=== PATIENT | male | born 2000 | race Caucasian/White ===

== ENCOUNTER 2024-05-03 15:57 | Outpatient (AMB) | payer BC, SELFPAY ==
--- NOTE | 2024-05-03 16:00 | AM.OFFWIN_ITS ---
Intake Vital Signs 05/03/24 16:04 Height 5 ft 10 in Weight 183 lb BMI 26.3 BP 122/74 Blood Pressure Location Lt brachial Position Sitting Pulse 73 Pulse Source Pulse Oximeter Temp 97.8 F Temp Source Temporal Artery Scan Pulse Oximetry (%) 98 Intake Visit Reasons: Right pinkie Toe infected Intake Note: pt is here for right pinky toe infection Patient Tobacco Use Status: Never used Tobacco Allergies No Known Allergies Allergy (Verified 05/03/24 16:00) Do you need a note to return to daycare/school/sports/work: Yes HPI HPI Comments History of Present Illness Details 23 y/o male patient who presents to walk in clinic with c/o right 5th toe injury x 3 days ago. He injured his toe against the door. FOR[facility], [facility] Social History Patient Tobacco Use Status: Never used Tobacco Review of Systems Const All systems reviewed & are unremarkable except as noted in HPI and below Physical Exam Vital Signs: Last Vital Signs Temp 97.8 F 05/03/24 16:04 Pulse 73 05/03/24 16:04 BP 122/74 05/03/24 16:04 Pulse Ox 98 05/03/24 16:04 BMI result Body Mass Index 26.3 Const General: comfortable and no acute distress Orientation/consciousness: patient oriented x3 Neuro General: patient oriented x3, gait normal and moves all extremities Extrem Right lower extremity: foot Details: normal capillary refill, tenderness, toes with normal ROM and edema Location: of the dorsal foot and of another digit Location: the 5th digit and at the proximal phalanx Psych Speech and movement: Normal speech and movement present Assessment & Plan Assessment & Plan (1) Crushing injury of fifth toe, right: Code(s): S97.121A - Crushing injury of right lesser toe(s), initial encounter Qualifiers: Encounter type: initial encounter Qualified Code(s): S97.121A - Crushing injury of right lesser toe(s), initial encounter Plan: Ordered Xray Ice/Hot Ibuprofen for pain relief Orders: Orders XR foot RT 2V Today S97.121A - Crushing injury of right lesser toe(s), initial encounter Coding Level of Care Code Est Pt Level 4 (96395) Diagnoses Crushing injury of fifth toe of right foot, initial encounter S97.121A Encounter type: initial encounter Time Spent (min) 20
[2024-05-03 16:04] VITALS: BP 122/74; PULSE 73; TEMP 36.6; O2SAT 98; BMI 26.3
== END 2024-05-03 18:10 | disposition home or self-care (01) ==
PROVIDERS: PCP Pediatrics; Visit Provider Nurse Practitioner Family
DX: S97.121A Crushing injury of right lesser toe(s), initial encounter (principal)
CPT/HCPCS: 99214

== ENCOUNTER 2024-05-03 16:10 | Outpatient (REF) | payer BC, SELFPAY ==
--- NOTE | ~2024-05-03 | XR_ITS ---
EXAMINATION: XR FOOT, RIGHT CLINICAL INFORMATION: Crushing injury. Pain COMPARISON: None available. TECHNIQUE: AP, lateral, and oblique views of the right foot. FINDINGS: There is a very slender osseous density, seen related to the distal aspect of the proximal phalanx of the fifth toe. This could reflect a subtle avulsion. Chronicity of this finding is uncertain. No other questionable fractures are seen. Remainder the foot is intact. XR/XR foot RT 2V IMPRESSION: Query subtle avulsion injury as described.
== END 2024-05-03 16:11 | disposition home or self-care (01) ==
LOC: HO.HMGCX 16:10
PROVIDERS: PCP Pediatrics; Visit Provider Nurse Practitioner Family
DX: S97.121A Crushing injury of right lesser toe(s), initial encounter (principal)
CPT/HCPCS: 73620

== ENCOUNTER 2025-02-06 14:24 | Emergency (ER) | payer BC, SELFPAY ==
--- NOTE | ~2025-02-06 | XR_ITS ---
EXAMINATION: XR CHEST CLINICAL INFORMATION: coughing. pneumonia? COMPARISON: None available. TECHNIQUE: Frontal view of the chest was obtained. FINDINGS: No consolidation, pleural fissure pneumothorax. Mild prominence of the interstitial markings. Cardiomediastinal silhouette size is normal. Osseous structures are grossly intact. Mild S-shaped curvature of the thoracic spine. XR/XR chest 1V IMPRESSION: Acute small airway inflammatory process should be considered in the correct clinical settings. Electronically signed by: King Nicholas MD 02/06/2025 03:49 PM EDT
[2025-02-06 14:51] VITALS: BP 153/92; PULSE 100; RESP 18; TEMP 37.1; O2SAT 96
--- NOTE | 2025-02-06 15:10 | ED_ITS ---
HPI - General Adult General Chief complaint: Upper Respiratory Symptoms Stated complaint: Congestion, sore throat Time Seen by Provider: 02/06/25 14:56 Source: patient Mode of arrival: ambulatory Limitations: no limitations History of Present Illness ED Provider: Tahir Childs HPI narrative: 24 yold male with no pmh presents to the ED for URI symptoms. Patient states nasal congestion, coughing, bodyaches, fever, and chills. patient states no chest pain or shortness of breath. Related Data Previous Rx's ?Medication ?Instructions ?Recorded albuterol sulfate 90 mcg/actuation 2 puff inhalation Q4-6H PRN 02/06/25 aerosol inhaler shortness of breath or wheezing #8.5 grams azithromycin 250 mg tablet See Rx Instructions PO .COMPLEX #6 02/06/25 tabs benzonatate 200 mg capsule 200 mg PO TID PRN cough 5 days #15 02/06/25 caps Allergies Allergy/AdvReac Type Severity Reaction Status Date / Time No Known Allergies Allergy Verified 02/06/25 14:53 Review of Systems Review of Systems: coughing, nasal congestion, fever, chills, and bodyaches Yes all other systems are reviewed and are negative [facility] Social History Social History Patient Tobacco Use Status: Never used Tobacco Advance Directives: No Advance Directives Information Provided: No Physical Exam ED Vital Signs: Vital Signs - 24 hr 02/06/25 14:51 02/06/25 16:36 Temperature 98.7 F 98.7 F Pulse Rate 100 100 Respiratory Rate 18 18 Blood Pressure 153/92 H 153/92 H Pulse Oximetry 96 96 Oxygen Delivery Method Room Air Room Air BMI result Body Mass Index 30.0 Const General: cooperative, healthy appearing, comfortable, no acute distress, well developed, alert, awake and Physically active Orientation/consciousness: patient oriented x3 HENMT Head: Yes normal to inspection, Yes No palpable skull fracture present, Yes normocephalic and Yes atraumatic Ears: hearing grossly normal bilaterally, external ears normal, TM's normal bilaterally, TM normal on the right, TM normal on the left, EAC's normal and mas toids normal Throat: Yes posterior oropharynx normal, Yes tonsils normal and Yes uvula midline Eyes General: appearance normal, both eyes and all related structures Visual Erickson: normal visual erickson by confrontation Alignment and Position: alignment normal Periorbital: periorbital findings normal Eyelids: Yes eyelids normal Conjunctivae: conjunctivae normal Sclerae: sclerae normal Corneas: corneas normal Pupils: Equal, round and reactive pupils present EOM: EOMs intact bilaterally Direct Ophthalmoscopy: normal light reflex Neck Neck: Yes normal visual inspection, Yes full ROM, Yes no lymphadenopathy, Yes no meningeal signs, Yes trachea midline, Yes supple, No anterior neck swelling and No tender Chest Chest palpation & inspection: normal inspection of the chest and normal palp ation of entire chest wall Resp Effort & Inspection: normal respiratory effort and able to speak in complete sentences Auscultation: clear to auscultation bilaterally Cardio Jugular venous distension: no JVD Heart sounds: S1 normal heart sound present and S2 normal heart sound present GI Inspection: Yes normal to inspection Palpation (GI): Soft to palpation, not firm, nontender, no guarding and not rigid General: Yes no CVA tenderness Back/Spine/Pelvis Back: no CVA tenderness and No back tenderness Skin General skin exam: no rashes or lesions noted, elasticity normal and turgor normal Neuro General: patient oriented x3, gait normal, tone normal, moves all extremities, Normal light touch and pain sensation, no meningeal signs, no focal motor deficits and CN's II-XI intact bilaterally Cranial nerves: Yes Equal, round and reactive pupils present Extrem General: Yes normal to inspection, Yes full ROM and Yes capillary refill normal Psych Appearance: grossly normal, well kempt and not disheveled Course Course Course Narrative: RME: 24-year-old male presents to ED for nasal congestion, chest congestion, coughing, body aches, fever, and chills. Patient denied any distress. Lungs are clear. Negative for any lower extremity swelling pitting edema or calf pain. Patient denies any pleurisy. Chest x-ray SARs strep ordered. Medical Decision Making Medical Decision Making MDM Narrative: 24-year-old male presents to ED for URI symptoms. Patient states cough, chest congestion, nasal congestion, body aches, chills and fever for the past 2 days. Patient denies any shortness of breath, leg swelling, calf pain, chest pain, or pleurisy. Lungs are clear. Patient is sent for SARs strep chest x-ray. 4: 17pm: Abdominal patient's SARs strep came back negative. Chest x-ray shows possible small airway disease. We will treat as bronchitis. Patient be di scharged albuterol inhaler and antibiotics and cough medication. Patient explained worrisome signs and informed to return to the ED immediately. NOt suspecting hypoxia, CHF, pericarditits, myocarditits, OK, PE, or any other concerning symptoms. Differential Diagnosis Differential Diagnoses: The differential diagnosis associated with the presentation includes (Pneumonia, COVID, influenza, RSV strep bronchitis) Admission/Observation Consideration of admission/observation: Escalation of care including admission/observation considered Lab Data MDM Lab Attestation statement: I reviewed the patient's lab results. Labs: Lab Results 02/06/25 Range/Units 14:56 Influenza Type A (PCR) NEGATIVE (Negative) Influenza Type B (PCR) NEGATIVE (Negative) RSV RNA Qual (PCR) NEGATIVE (Negative) SARS-CoV-2 RNA (RT-PCR) NEGATIVE (Negative) S. pyogenes GrpA YANETH Negative (Negative) Independent Interpretation I performed an independent interpretation of an: Plain X-Ray Radiology Impression Discussion of test interpretation with radiology: I have reviewed the radiologist's reading. Independent Historian Clinical information obtained from an independent historian. History obtained from or confirmed by: Other (patient) Prescription Management I considered prescription management with: Antibiotic and Other (albuterol) Discharge Plan Discharge Clinical Impression: Bronchitis Patient Disposition: Home, Self-Care Instructions: Acute Bronchitis (ED) Additional Instructions: Return to the ED immediately for any coughing up blood, chest pain, shortness of breath, severe sore throat, leg swelling, calf pain, chest pain on inspiration, rash, intractable fever, weakness, dizziness, or any other concerning symptoms. Recommend follow up with PCP OMPARISON: None available. TECHNIQUE: Frontal view of the chest was obtained. FINDINGS: No consolidation, pleural fissure pneumothorax. Mild prominence of the interstitial markings. Cardiomediastinal silhouette size is normal. Osseous structures are grossly intact. Mild S-shaped curvature of the thoracic spine. XR/XR chest 1V IMPRESSION: Acute small airway inflammatory process should be considered in the correct clinical settings. Electronically signed by: King Nicholas MD 02/06/2025 03:49 PM EDT Prescriptions: New albuterol sulfate 90 mcg/actuation HFA aerosol inhaler 2 puff inhalation Q4-6H PRN (Reason: shortness of breath or wheezing) Qty: 8.5 0RF azithromycin 250 mg tablet See Rx Instructions .ROUTE .COMPLEX Qty: 6 0RF Rx Instructions: For 250 mg dose pack: take 500 mg today (day 1), then 250 mg for 4 days (days 2-5) benzonatate 200 mg capsule 200 mg PO TID PRN (Reason: cough) 5 Days Qty: 15 0RF Stand Alone Forms: Work/School Release Interventions: ED Discharge Assessment Last Done: 02/06/25 16:36 Discharge Date/Time: 02/06/25 16:37 Print Language: Greenlandic
[2025-02-06 15:22] LABS: IDNOW Serial# 55D5AD1C; Strep A Nucleic Acid Negative (Negative)
[2025-02-06 15:55] LABS: Influenza A PCR NEGATIVE (Negative); Influenza B PCR NEGATIVE (Negative); Resp Syncy Virus RNA Qual PCR NEGATIVE (Negative); SARS COV2 PCR INHOUSE NEGATIVE (Negative)
[2025-02-06 16:36] VITALS: BP 153/92; PULSE 100; RESP 18; TEMP 37.1; O2SAT 96
== END 2025-02-06 16:37 | disposition home or self-care (01) ==
LOC: HO.ED 16:34
PROVIDERS: Physician Assistant; Emergency Provider Emergency Medicine
DX: J40 Bronchitis, not specified as acute or chronic (principal); R50.9 Fever, unspecified
CPT/HCPCS: 0241U; 71045; 87651; 99282; 99283

== ENCOUNTER → 2025-02-06 15:05 | Outpatient (BNV) | payer BC, SELFPAY | PROVIDERS: Emergency Provider Emergency Medicine; Visit Provider Radiology Diagnostic Radiology | DX: R05.9 Cough, unspecified (principal) | CPT/HCPCS: 71045 ==

== ENCOUNTER 2025-06-03 19:49 | Emergency (ER) | payer BC, SELFPAY ==
--- NOTE | ~2025-06-03 | XR_ITS ---
CLINICAL HISTORY: pain, injury 3 view left ankle Comparison: None provided Findings: Bones intact. No dislocations. No significant loss of joint space, osteophytes, or erosions. No ankle effusion. No radiopaque foreign body. IMPRESSION: 1. No acute findings. This document has been electronically signed by: Radha Bhatia MD on 06/03/2025 20:44:20
--- NOTE | ~2025-06-03 | XR_ITS ---
CLINICAL HISTORY: pain, injury 3 view left foot Comparison: None provided Findings: Bones intact. No dislocations. Soft tissue laceration noted adjacent to the distal tibia. Small focus of erosion within the head of the 1st metatarsal. No significant joint space loss. No ankle effusion. No radiopaque foreign body. IMPRESSION: No evidence of fracture or foreign body. This document has been electronically signed by: Radha Bhatia MD on 06/03/2025 20:45:22
--- NOTE | 2025-06-03 19:57 | ED_ITS ---
HPI - General Adult General Chief complaint: Wound/Laceration Stated complaint: car fell on left foot, bleeding Time Seen by Provider: 06/04/25 01:01 Source: patient Mode of arrival: ambulatory Limitations: no limitations History of Present Illness ED Provider: Yogi GÓMEZ HPI narrative: Patient is a 24-year-old male presenting to the ED for evaluation of pain, swelling, and a laceration to his left ankle/foot after a car he was working on fell off a [place] and onto his foot. The patient was able to remove the foot as the vehicle was falling. Patient denies distal paresthesias or impaired range of motion. The patient does not know the date of his last tetanus shot. Patient denies previous injury to the affected extremity. Related Data Previous Rx's ?Medication ?Instructions ?Recorded albuterol sulfate 90 mcg/actuation 2 puff inhalation Q 4-6H PRN 02/06/25 aerosol inhaler shortness of breath or wheez ing #8.5 grams azithromycin 250 mg tablet See Rx Instructions PO .COM PLEX #6 02/06/25 tabs benzonatate 200 mg capsule 200 mg PO TID PRN cough 5 d ays #15 02/06/25 caps acetaminophen 500 mg capsule 1,000 mg (2 x 500 mg) PO .q8 PRN 06/04/25 fever or pain #30 caps ibuprofen 600 mg tablet 600 mg PO Q8H PRN fever or p ain 06/04/25 #30 tabs Allergies Allergy/AdvReac Type Severity Reaction Status Date / Time No Known Allergies Allergy Verified 06/03/25 20:00 Review of Systems Review of Systems: Yes all other systems are reviewed and are negative PMFSH Social History Social History Patient Tobacco Use Status: Never used Tobacco Smoked in Last 30 Days: Yes Use of substances other than those prescribed or required for medical reasons: Yes Substance Use Type: Marijuana Advance Directives: No Advance Directives Information Provided: No Do you have a plan to hurt others: No Plan Physical Exam ED Vital Signs: Vital Signs - 24 hr 06/03/25 19:59 06/03/25 23:42 Temperature 97.5 F 98.0 F Pulse Rate 110 H 97 Respiratory Rate 20 16 Blood Pressure 129/83 153/101 H Pulse Oximetry 97 97 Oxygen Delivery Method Room Air Room Air BMI result Body Mass Index 27.9 CONSTITUTIONAL: The patient appears non-toxic, well nourished and in no acute distress. Vital signs as documented. HEAD: Atraumatic, normocephalic. EYES: EOMs grossly intact, pupils equal, conjunctiva clear, no exudate. ENT: Nares patent, no discharge. Airway patent, no audible stridor, visible mucosa is pink and moist without noted lesions. NECK: trachea is midline, no obvious masses or gross abnormalities. CHEST: Symmetric movement, normal appearance. LUNGS: Non-labored work of breathing. CARDIAC: No evidence of hypoperfusion. ABDOMEN: Nondistended, no obvious injury. : Deferred. EXTREMITIES: There is contusion and swelling noted to the dorsum of the left foot with a 3 cm laceration noted to the dorsal surface of the left ankle, there was an additional abrasion noted to the middle 3rd of the left anterior tibia, no overlying bony tenderness. Patient is able to bear weight. Distal CSM is intact, 2+ DP/PT pulses. Compartments are soft. Patient endorses full but painful range of motion of the left digits. Moves all other extremities spontaneously without reported pain. No other obvious injury or deformity noted. NEURO: Alert and oriented x3, CN II-XII appear grossly intact. Cerebellar Functioning grossly intact. Speech clear and appropriate. SKIN: Warm, dry, color appropriate. No rashes or lesions noted. Course Course Course Narrative: Rapid medical examination performed in triage by Tory Saleh PA-C. Patient is a 24 year old assigned male at presenting to the emergency department with left ankle pain. Patient states he was working on a car that slipped off the stands and landed on his left ankle. Detailed physical exam and review of systems are deferred to the crisis clinician. Imaging ordered. Patient placed back in the waiting room pending room availability and results. Medications Administered Discontinued Medications Generic Name Dose Route Start Last Admin Trade Name Freq PRN Reason Stop Dose Admin Diphtheria/Tetanus/Acell Pertussis 0.5 ml 06/03/25 19:59 06/03/25 23:45 Diphth,Pertus(Acell),Tet Adult 0.5 Ml Syringe IM 06/03/25 20:00 0.5 ml .ONCE ONE Administration Procedures Laceration Laceration 1: Site: lower extremity Side (If applicable): left Size (cm): 3 Description: linear and clean Depth: simple, single layer Local Anesthetic: lidocaine 1% Amount of anesthesia used (mL): 5 Pre-repair: wound explored and irrigated extensively Skin layer closed with: nylon Size (cm): 4-0 Number of sutures: 5 Technique: simple, interrupted Medical Decision Making Medical Decision Making MDM Narrative: 2:08 AM 06/04/2025 (Lee GÓMEZ): Patient is a 24-year-old male presenting to the ED for evaluation of pain, swelling, contusion, and laceration of the left foot/ankle after a car he was replaced in the brakes on fell off the [place] onto his foot. The patient's x-ray showed no evidence of acute fracture, laceration was repaired. Patient will be treated with ibuprofen, Tylenol, and outpatient follow up with PCP for re-evaluation and suture removal. Radiology Impression Discussion of test interpretation with radiology: I have reviewed the radiologist's reading. Radiologist Impression: CLINICAL HISTORY: pain, injury 3 view left foot Comparison: None provided Findings: Bones intact. No dislocations. Soft tissue laceration noted adjacent to the distal tibia. Small focus of erosion within the head of the 1st metatarsal. No significant joint space loss. No ankle effusion. No radiopaque foreign body. IMPRESSION: No evidence of fracture or foreign body. This document has been electronically signed by: Radha Bhatia MD on 06/03/2025 20:45:22 CLINICAL HISTORY: pain, injury 3 view left ankle Comparison: None provided Findings: Bones intact. No dislocations. No significant loss of joint space, osteophytes, or erosions. No ankle effusion. No radiopaque foreign body. IMPRESSION: 1. No acute findings. This document has been electronically signed by: Radha Bhtaia MD on 06/03/2025 20:44:20 Tests considered The following testing was considered but not selected: CT Prescription Management I considered prescription management with: Pain Medication Discharge Plan Discharge Clinical Impression: Laceration of ankle without foreign body Qualifiers: Encounter type: initial encounter Laterality: left Qualified Code(s): S91.012A - Laceration without foreign body, left ankle, initial encounter Contusion of foot, left Qualifiers: Encounter type: initial encounter Qualified Code(s): S90.32XA - Contusion of left foot, initial encounter Patient Disposition: Home, Self-Care Instructions: Laceration (ED), Foot Contusion (ED) Additional Instructions: Thank you for choosing [facility]'s Emergency Department for your care today. Thankfully your x-rays today showed no evidence of any acute fracture of your ankle or foot as a result of your car falling off its [place]. Your laceration today appears noncomplicated. The laceration was repaired with nonabsorbable sutures which will need to be removed in 7-10 days. Please return to the emergency department or follow-up with your primary care provider for removal of sutures. Please apply bacitracin and a clean dry dressing to the laceration twice daily for the first 2-3 days. Then please keep the area clean and dry, but uncovered and exposed to the air to allow the laceration to heal. While it is perfectly acceptable to allow water to run over the sutures while showering, please do not swim, or submerge the laceration in standing water until the sutures are removed. You may take alternating (staggered) doses of ibuprofen 600mg and Tylenol 1000mg every 4 hours as needed for any additional pain. Please rest the injured area, and apply ice for 20 minutes every hour. If you do not have a primary care physician, please call the [facility] at [phone] to establish a new primary care physician. While waiting to establish your new primary care physician, you can call our Walk-in [facility] at [phone] for non-emergency needs. Please return to the emergency department if you develop any uncontrollable bleeding, re-opening of your wound, redness advancing >1-2 cm away from your wound, or white milky discharge from your wound. Please also return if you experience any other new or worsening symptoms or concerns. Prescriptions: New ibuprofen 600 mg tablet 600 mg PO Q8H PRN (Reason: fever or pain) Qty: 30 0RF acetaminophen 500 mg capsule 1,000 mg PO .q8 PRN (Reason: fever or pain) Qty: 30 0RF No Action albuterol sulfate 90 mcg/actuation HFA aerosol inhaler 2 puff inhalation Q4-6H PRN (Reason: shortness of breath or wheezing) Qty: 8.5 0RF azithromycin 250 mg tablet See Rx Instructions .ROUTE .COMPLEX Qty: 6 0RF Rx Instructions: For 250 mg dose pack: take 500 mg today (day 1), then 250 mg for 4 days (days 2-5) benzonatate 200 mg capsule 200 mg PO TID PRN (Reason: cough) 5 Days Qty: 15 0RF Referrals: Physician,None [Primary Care Provider, Medical] Clinical Impression: Laceration of ankle without foreign body Stand Alone Forms: Work/School Release Print Language: Ghanaian
[2025-06-03 19:59] VITALS: BP 129/83; PULSE 110; RESP 20; TEMP 36.4; O2SAT 97; BMI 27.9
[2025-06-03 23:42] VITALS: BP 153/101; PULSE 97; RESP 16; TEMP 36.7; O2SAT 97
[2025-06-03] MEDS: Diphth,Pertus(ACell),Tet Adult 0.5 ML SYRINGE IM (23:45)
[2025-06-04 02:00] VITALS: BP 150/82; PULSE 90; RESP 17; TEMP 36.7; O2SAT 99
[2025-06-04] MEDS: Lidocaine HCl 1 % MPF 5 ML VIAL INFILTRATI (02:10)
[2025-06-04 02:38] VITALS: BP 150/82; PULSE 90; RESP 17; TEMP 36.7; O2SAT 99
== END 2025-06-04 02:40 | disposition home or self-care (01) ==
PROVIDERS: Emergency Provider Emergency Medicine
DX: S91.012A Laceration without foreign body, left ankle, initial encounter (principal); S90.32XA Contusion of left foot, initial encounter; W20.8XXA Other cause of strike by thrown, projected or falling object, initial encounter; Y93.89 Activity, other specified; Y92.89 Other specified places as the place of occurrence of the external cause; Y99.8 Other external cause status
CPT/HCPCS: 12002; 73610; 73630; 90471; 90715; 99284; J2003

== ENCOUNTER → 2025-06-03 19:59 | Outpatient (BNV) | payer BC, SELFPAY | PROVIDERS: Visit Provider Radiology Diagnostic Radiology | DX: M25.572 Pain in left ankle and joints of left foot (principal) | CPT/HCPCS: 73610; 73630 ==

== ENCOUNTER 2025-06-19 13:57 | Emergency (ER) | payer BC, SELFPAY ==
[2025-06-19 15:15] VITALS: BP 179/112; PULSE 113; RESP 18; TEMP 36.6; O2SAT 97; BMI 29.3
[2025-06-19 15:24] VITALS: BP 183/93; PULSE 116; RESP 20; O2SAT 97
--- NOTE | 2025-06-19 15:51 | ED_ITS ---
HPI - General Adult General Chief complaint: Wound/Laceration Stated complaint: Issues w/ suture sight Time Seen by Provider: 06/19/25 15:21 Source: patient Mode of arrival: ambulatory Limitations: no limitations History of Present Illness ED Provider: Tahir Monzon HPI narrative: 24 yold male presents to the ED for left ankle slight swelling soft liquid are under previous sutured wound that was removed. Patient states no calf pain, red streaks, pus discharge, foul odor, ecchymosis, numbness, or tingling. Related Data Previous Rx's ?Medication ?Instructions ?Recorded albuterol sulfate 90 mcg/actuation 2 puff inhalation Q 4-6H PRN 02/06/25 aerosol inhaler shortness of breath or wheez ing #8.5 grams azithromycin 250 mg tablet See Rx Instructions PO .COM PLEX #6 02/06/25 tabs benzonatate 200 mg capsule 200 mg PO TID PRN cough 5 d ays #15 02/06/25 caps acetaminophen 500 mg capsule 1,000 mg (2 x 500 mg) PO .q8 PRN 06/04/25 fever or pain #30 caps ibuprofen 600 mg tablet 600 mg PO Q8H PRN fever or p ain 06/04/25 #30 tabs cephalexin 500 mg capsule 500 mg PO QID 7 days #28 cap s 06/19/25 Allergies Allergy/AdvReac Type Severity Reaction Status Date / Time No Known Allergies Allergy Verified 06/19/25 15:17 Review of Systems 2 Review of Systems: left ankle area of swelling under suture dwound Yes all other systems are reviewed and are negative PMFSH Social History Social History Patient Tobacco Use Status: Never used Tobacco Substance Use Type: Marijuana Advance Directives: No Advance Directives Information Provided: Yes Physical Exam ED Vital Signs: Vital Signs - 24 hr 06/19/25 15:15 06/19/25 15:24 Temperature 97.9 F Pulse Rate 113 H 116 H Respiratory Rate 18 20 Blood Pressure 179/112 H 183/93 H Pulse Oximetry 97 97 Oxygen Delivery Method Room Air Room Air BMI result Body Mass Index 29.3 Const General: cooperative, healthy appearing, comfortable, no acute distress, well developed, alert, awake and Physically active Orientation/consciousness: patient oriented x3 HENMT Head: Yes normal to inspection, Yes No palpable skull fracture present, Yes normocephalic and Yes atraumatic Eyes General: appearance normal, both eyes and all related structures Neck Neck: Yes normal visual inspection, Yes full ROM, Yes no lymphadenopathy, Yes no meningeal signs, Yes trachea midline, Yes supple, No anterior neck swelling, No lymphadenopathy and No tender Chest Chest palpation & inspection: normal inspection of the chest and normal palpation of entire chest wall Resp Effort & Inspection: normal respiratory effort and able to speak in complete sentences Auscultation: clear to auscultation bilaterally Cardio Jugular venous distension: no JVD Heart sounds: S1 normal heart sound present and S2 normal heart sound present GI Inspection: Yes normal to inspection Palpation (GI): Soft to palpation, not firm, nontender, no guarding and not rigid General: Yes no CVA tenderness Back/Spine/Pelvis Back: no CVA tenderness and No back tenderness Skin General skin exam: no rashes or lesions noted, elasticity normal and turgor normal Neuro General: patient oriented x3, gait normal, tone normal, moves all extremities, Normal light touch and pain sensation, no meningeal signs, no focal motor deficits and CN's II-XI intact bilaterally Extrem General: Yes normal to inspection and Yes full ROM Ankle/foot/toe images: 2 1. positive for swelling/softness under old sutured wound that is slight red. negative for ecchymosis, pus discharge, foul odor, calf tenderness, red streaks, deformity, or crepitus. Motor, neuro, and vascular exam is intact. Psych Appearance: grossly normal, well kempt and not disheveled Medical Decision Making Medical Decision Making MDM Narrative: 24 yold male presents left ankle fluctuance redness swelling under prior incision under previous area of suture and suture removal. Patient had sutures removed last week. Patient has near ankle small area of fluctuance with redness under old sutured wound without any pus drainage. Rest of extremity normal negative for signs of DVT, arterial occlusion, compartment syndrome, osteomyelitis, dislocation, or fracture. Negative for calf pain or leg swelling. Patient is found to to be tachycardic and hypertensive. Patient is asymptomatic. Patient does not want any further evaluation. Patient was informed usually would like to do EKG and labs possibly fluids but patient preferred to be discharged. Patient educated on risks of . Patient is educated worrisome signs informed to return to the ED immediately. Could be a seroma on ankle. Differential Diagnosis Differential Diagnoses: The differential diagnosis associated with the presentation includes (Cellulitis, seroma,) Admission/Observation Consideration of admission/observation: Escalation of care including admission/observation considered Independent Historian Clinical information obtained from an independent historian. History obtained from or confirmed by: Other (patient) Prescription Management I considered prescription management with: Pain Medication and Antibiotic Discharge Plan Discharge Clinical Impression: Abscess Patient Disposition: Left Against Medical Advice Instructions: Abscess (ED), Hypertension (ED), Tachycardia (ED), Seroma (DC) Additional Instructions: Due to redness and swelling we will recommend warm compress 4 times a day for 15 minutes and you will be discharged with antibiotics. Return to the ED immediately for increased swelling, redness, bluish black discoloration, chest pain, or shortness of breath. Your blood pressure and heart rate were elevated in the ER, but you are leaving. Recommend keeping records of your blood pressure and heart rate. Recommend profuse oral hydration. Recommend follow up with primary care provider. Prescriptions: New cephalexin 500 mg capsule 500 mg PO QID 7 Days Qty: 28 0RF No Action ibuprofen 600 mg tablet 600 mg PO Q8H PRN (Reason: fever or pain) Qty: 30 0RF acetaminophen 500 mg capsule 1,000 mg PO .q8 PRN (Reason: fever or pain) Qty: 30 0RF albuterol sulfate 90 mcg/actuation HFA aerosol inhaler 2 puff inhalation Q4-6H PRN (Reason: shortness of breath or wheezing) Qty: 8.5 0RF azithromycin 250 mg tablet See Rx Instructions .ROUTE .COMPLEX Qty: 6 0RF Rx Instructions: For 250 mg dose pack: take 500 mg today (day 1), then 250 mg for 4 days (days 2-5) benzonatate 200 mg capsule 200 mg PO TID PRN (Reason: cough) 5 Days Qty: 15 0RF Referrals: [facility] [place] General Surgeons [Provider Group, General Surgery] - 2 days Referral Note: Abscess versus seroma status post suture placement and removal Clinical Impression: Abscess Group,[facility] [Primary Care Provider, Primary Care] - 3 days Referral Note: Abscess versus seroma Clinical Impression: Abscess Stand Alone Forms: Against Medical Advice, Work/School Release Interventions: ED Discharge Assessment Last Done: 06/19/25 16:15 Discharge Date/Time: 06/19/25 16:15 Print Language: Chinese
[2025-06-19 16:15] VITALS: BP 183/93; PULSE 116; RESP 20; TEMP 37.1; O2SAT 97
== END 2025-06-19 16:15 | disposition left against medical advice (07) ==
PROVIDERS: Emergency Provider Emergency Medicine
DX: L02.416 Cutaneous abscess of left lower limb (principal)
CPT/HCPCS: 99282; 99283